=== PATIENT | female | born 1955 | race Caucasian/White ===

== ENCOUNTER 2018-05-01 18:14 | Emergency (ER) | payer BC ==
[~2018-05-01] VITALS: Ht 167.6 cm; Wt 90.3 kg
--- OUTSIDE RECORDS SUMMARY | 2018-05-01 18:17 | XMS REPORT ---
Author Author [facility] Address Unknown Phone Unavailable Care Team Providers Care Razor Grinder Name Role Phone Gina CASTANEDA Unavailable Unavailable Problems This patient has no known problems. Allergies, Adverse Reactions, Alerts This patient has no known allergies or adverse reactions. Medications This patient has no known medications. Results Test Description Test Time Test Comments Text Results Atomic Results Result Comments FUNGUS CULTURE + SMEAR 2018-03-24 16:38:00 CULTURE (BEAKER) (test bclw=7206) No fungus isolated in 28 days FUNGUS SMEAR (BEAKER) (test tfvx=8431) No fungi seen TISSUE [id number] 13:33:00Surgical Pathology Report Case: [id number] Authorizing Provider: Shun Castaneda DPM Collected: 02/18/2018 1409 Ordering Location: [facility] PER[facility] Received: 02/18/2018 1527 SERVICES Pathologist: Rob Milligan MD Specimen: Ulcer, Right Big Toe A. TOE, RIGHT BIG, ULCER, DEBRIDEMENT: - ULCERATION AND NECROSIS INVOLVING SKIN ANDSUBCUTANEOUS SOFT TISSUE - CHRONIC OSTEOMYELITIS OF THE BONE Signing Pathologist Direct Phone Line: [phone] signed by Rob Milligan MD on 02/25/2018 at 1:33 [id number] injury of right foot, stage 3Right big toe ulcer Received in formalin labeled with the patient's name, MRN, and "ulcer" is a 1.5 x 0.4 cm, bond-white skin excised to a depth of 0.9 cm. The surface displays a 0.5 x 0.3 cm ulcer extending to a depth of 0.4 cm. The specimen is inked blue and trisected. Additionally received in the container are 0.5 x 0.5 x 0.2 cm, bond-pink, soft, fragmented pieces of tissue. The specimen is submitted in its entirety as follows: A1, skin with ulcer; A2, detached fragments of tissue. SA/ewPerformed.SURGICALLY OBTAINED CULTURE + GRAM [id number] 11:29:00* Test Item Value Reference Range Comments CULTURE (BEAKER) (test iicl=1824) COAGULASE NEGATIVE STAPHYLOCOCCUS 2+ Coagulase negative Staphylococcus Clindamycin (test code=10) Erythromycin (test code=4) Linezolid (test code=40) Oxacillin (test code=14) Rifampin (test code=43) Tetracycline (test code=2) Trimethoprim + Sulfamethoxazole (test code=47) Vancomycin (test code=13) CULTURE (BEAKER) (test dpjj=9900) From Broth Only Pseudomonas aeruginosa CULTURE (BEAKER) (test zxai=3852) PSEUDOMONAS AERUGINOSA 3+ DiphtheroidNo further workup performed Amikacin (test code=1) Susceptible 0-16 , Resistant <0 or >16 Aztreonam (test code=32) Susceptible 0-8 , Resistant <0 or >8 Cefepime (test code=51) Susceptible 0-8 , Resistant <0 or >8 Ceftazidime (test code=27) Susceptible 0-8 , Resistant <0 or >8 Ciprofloxacin (test code=7) Susceptible 0-1 , Resistant <0 or >1 Gentamicin (test code=18) Susceptible 0-4 , Resistant <0 or >4 Imipenem (test code=19) Susceptible 0-2 , Resistant <0 or >2 Levofloxacin (test code=22) Susceptible 0-2 , Resistant <0 or >2 Meropenem (test code=34) Susceptible 0-2 , Resistant <0 or >2 Piperacillin (test code=24) Susceptible 0-16 , Resistant <0 or >16 Piperacillin + Tazobactam (test code=29) Susceptible 0-16 , Resistant <0 or >16 Tobramycin (test code=25) Susceptible 0-4 , Resistant <0 or >4 GRAM STAIN RESULT (BEAKER) (test yiyj=0749) No white blood cells seen GRAM STAIN RESULT (BEAKER) (test esii=321211) <1+ gram positive rods ANAEROBIC [id number] 05:00:00* Test Item Value Reference Range Comments CULTURE (BEAKER) (test dfus=1973) 2+ Prevotella bivia POCT-GLUCOSE [id number] 11:47:00* Test Item Value Reference Range Comments POC-GLUCOSE METER (INES) (test hfre=6700) 173 mg/dL 70-[address] [facility] [address] [facility] [address]
--- OUTSIDE RECORDS SUMMARY | 2018-05-01 18:17 | XMS REPORT | Clinical Summary ---
Author Author [employer] [facility] [employer] [facility] Address Unknown Phone Unavailable Care Team Providers Care Railroad Shop Inspector Name Role Phone Bessy Ribeiro MD PCP Unavailable Allergies Comments Active Allergy Reactions Severity Noted Date Hair loss Hydrochlorothiazide Other (See High 06/10/2008 Comments) Burning Eyes Thimerosal Other (See High 06/10/2008 Comments) Medications End Date Status Medication Sig Dispensed Refills Start Date Active loratadine (CLARITIN) 10 Take 10 mg by 0 mg tablet mouth daily. Active omega-3 fatty acids-fish Take 2 g by 0 oil 340-1,000 mg Cap per mouth 2 (two) capsule times daily. Active cholecalciferol, vitamin Take by 0 D3, 2,000 unit Cap mouth. Active amLODIPine (NORVASC) 10 Take 10 mg by 0 MG tablet mouth daily. Active atorvastatin (LIPITOR) 10 Take 10 mg by 0 MG tablet mouth daily. Active metFORMIN (GLUCOPHAGE) Take 500 mg 0 500 MG tablet by mouth 2 (two) times daily with breakfast and dinner. Active SITagliptin (JANUVIA) 100 Take 100 mg 0 MG tablet by mouth daily. Active losartan (COZAAR) 50 MG Take 50 mg by 0 tablet mouth daily. Active B comp Take 1 tablet 0 kv2-inair-L-biotin-zinc by mouth 1-60-300-12.5 daily. nn-gp-imp-mg Tab Active Problems Not on file Encounters Care Team Description Date Type Specialty Sveta Wagner CRNA 02/18/2018 Anesthesia Event Shun Paul DPM OSTECTOMY,FOOT/ TOE 02/18/2018 Surgery Shun Paul DPM Exostosis of toe (Primary Dx); Chronic osteomyelitis of toe, right (HCC); Acquired hammertoe of great toes of both feet; Pressure ulcer of toe of right foot, stage 4 (HCC) 02/18/2018 Hospital Encounter Resource, [facility]readmit Phone 02/12/2018 Hospital Pre-Admission Testing Encounter after 04/30/2017 Social History Date Tobacco Use Types Packs/Day Years Used Never Smoker Smokeless Tobacco: Never Used Alcohol Use Drinks/Week oz/Week Comments No Alcohol Habits Answer Date Recorded How often do you have a drink containing alcohol? Never 02/12/2018 How many drinks containing alcohol do you have on Not asked a typical day when you are drinking? How often do you have six or more drinks on one Not asked occasion? Sex Assigned at Date Recorded Not on file Industry Job Start Date Occupation Not on file Not on file Not on file Travel End Travel History Travel Start No recent travel history available. Last Filed Vital Signs Time Taken Vital Sign Reading 02/18/2018 4:10 PM [employer] Blood Pressure 100/53 02/18/2018 4:10 PM [employer] Pulse 90 02/18/2018 4:10 PM [employer] Temperature 36.4 C (97.5 F) 02/18/2018 4:10 PM [employer] Respiratory Rate 18 02/18/2018 4:10 PM [employer] Oxygen Saturation 100% - Inhaled Oxygen - Concentration 02/18/2018 11:20 AM [employer] Weight 88.2 kg (194 lb 6.4 oz) 02/18/2018 11:20 AM [employer] Height 167.6 cm (5' 6") 02/18/2018 11:20 AM [employer] Body Mass Index 31.38 Plan of Treatment Not on file Procedures Comments Procedure Name Priority Date/Time Associated Diagnosis TISSUE EXAM AP Routine 02/18/2018 2:09 PM [employer] FUNGUS CULTURE + SMEAR Routine 02/18/2018 2:04 PM [employer] ANAEROBIC CULTURE Routine 02/18/2018 2:04 PM [employer] SURGICALLY OBTAINED Routine 02/18/2018 CULTURE + GRAM STAIN 2:04 PM [employer] DEBRIDEMENT/I&D,WOUND 02/18/2018 Pressure injury of right EXTREMITY LOWER 12:00 PM [employer] foot, stage 3 (HCC) Case Notes 2 HRSOK'D TF GIVEN BY [facility] Special Jonny (PULSE LAVAGE)Joce zavala OSTECTOMY,FOOT/ TOE 02/18/2018 Pressure injury of right 12:00 PM [employer] foot, stage 3 (HCC) Case Notes 2 HRSOK'D TF GIVEN BY [facility]ORY Special Needs (PULSE LAVAGE)Joce zavala POCT-GLUCOSE METER Routine 02/18/2018 11:44 AM [employer] after 04/30/2017 Results * Tissue Exam (02/18/2018 2:09 PM [employer]) Case Report Surgical Pathology [facility] Report [facility] Case: [id number] Authorizing Provider:Shun Paul DPollected: 02/18/2018 1409 Ordering Location: [facility] PERIOPERATIVE Received: 02/18/2018 1527 SERVICES Pathologist: Rob Milligan MD Specimen:Ulcer, Right Big Toe DIAGNOSIS A. TOE, RIGHT BIG, ULCER, [facility] DEBRIDEMENT: [facility] - ULCERATION AND NECROSIS INVOLVING SKIN ANDSUBCUTANEOUS SOFT TISSUE - CHRONIC OSTEOMYELITIS OF THE BONE Signing Pathologist Direct Phone Line: [phone] CPT Code(s) 89[address] [facility] CLINICAL HISTORY Pressure injury of right foot, [facility] stage 3 [facility] SPECIMEN SOURCE Right big toe ulcer [facility] GROSS DESCRIPTION Received in formalin labeled [facility] with the patient's name, MRN, [facility] and "ulcer" is a 1.5 x 0.4 [...] with ulcer; A2, detached fragments of tissue. SA/ew MICROSCOPIC DESCRIPTION Performed. [facility] Specimen Tissue - Ulcer Performing Organization Address City/State/Zipcode Phone Number [facility] [address] [place] [address] MEDICAL CENTER * Anaerobic culture (02/18/2018 2:04 PM [employer]) Result PREVOTELLA BIVIA (A) [facility] Specimen Wound - Toe, Right Performing Organization Address [facility] Phone Number [facility] [address] [place] [address] [facility] * Surgically obtained culture + gram stain (02/18/2018 2:04 PM [employer]) Result STAPHYLOCOCCUS, COAGULASE [facility] NEGATIVE (A) [facility] Result PSEUDOMONAS AERUGINOSA (A) [facility] Result 3+ Diphtheroid (A)Comment: No [facility] further workup performed [facility] Gram Stain Result No white blood cells seen [facility] Gram Stain Result <1+ gram positive rods [facility] Specimen Wound - Toe, Right Antibiotic Method Susceptibility Organism Clindamycin >=4: Resistant Coagulase negative Staphylococcus Erythromycin >=8: Resistant Coagulase negative Staphylococcus Linezolid 2: Susceptible Coagulase negative Staphylococcus Oxacillin >=4: Resistant Coagulase negative Staphylococcus Rifampin <=0.5: Susceptible Coagulase negative Staphylococcus Tetracycline <=1: Susceptible Coagulase negative Staphylococcus Trimethoprim + Sulfamethoxazole 80: Resistant Coagulase negative Staphylococcus Vancomycin 1: Susceptible Coagulase negative Staphylococcus Amikacin <=8: Susceptible Pseudomonas aeruginosa Aztreonam 4: Susceptible Pseudomonas aeruginosa Cefepime <=4: Susceptible Pseudomonas aeruginosa Ceftazidime <=1: Susceptible Pseudomonas aeruginosa Ciprofloxacin <=0.5: Susceptible Pseudomonas aeruginosa Gentamicin <=2: Susceptible Pseudomonas aeruginosa Imipenem <=0.5: Susceptible Pseudomonas aeruginosa Levofloxacin <=1: Susceptible Pseudomonas aeruginosa Meropenem <=0.5: Susceptible Pseudomonas aeruginosa Piperacillin <=16: Susceptible Pseudomonas aeruginosa Piperacillin + Tazobactam <=8: Susceptible Pseudomonas aeruginosa Tobramycin <=2: Susceptible Pseudomonas aeruginosa Performing Organization Address [facility] Phone Number [facility] [address] [place] [address] [facility] * Fungus culture + smear (02/18/2018 2:04 PM [employer]) Result No fungus isolated in 28 days [facility] Fungus Smear No fungi seen [facility] Specimen Wound - Toe, Right Performing Organization Address City/[facility] Phone Number [facility] [address] [place] [address] [facility] * POC-Glucose meter (02/18/2018 11:44 AM [employer]) POC-Glucose Meter 173 (H)Comment: TESTED AT 70 - 110 mg/dL [facility] [address] [facility] [id number] Specimen Blood Performing Organization Address City/[facility] Phone Number [facility] [address] [place] [address] [facility] after 04/30/2017 Insurance Payer Benefit Subscriber ID Type Phone Address Plan / Group BLUE CROSS/BLUE SHIELD BCBS HMO xxxxxxxxxxxx HMO/POS [phone] [address] [place] [address] TIA
--- NOTE | 2018-05-01 19:42 | NUR ---
REPORT TO SHEBA MALAGON
--- NOTE | 2018-05-01 19:44 | Diagnostic Imaging Report ---
FOREARM 2 VIEW LT -HOPD - 2 views HISTORY: Pain. Left arm fracture COMPARISON: None available. FINDINGS: Bones: No acute displaced fracture. Osseous alignment is within normal limits. Joints: The joint spaces are well-maintained. Soft tissues: The soft tissues appear unremarkable. IMPRESSION: No acute radiographic abnormality. Signed by: Dr. Lane Pittman M.D. on 05/01/2018 7:41 PM
--- NOTE | 2018-05-01 19:45 | Diagnostic Imaging Report ---
WRIST 2VW LT -HOPD - 3 views HISTORY: Pain. Left arm fracture. COMPARISON: None available. FINDINGS: Bones: No acute displaced fracture. Osseous alignment is within normal limits. Joints: The joint spaces are well-maintained. Soft tissues: The soft tissues appear unremarkable. IMPRESSION: No acute radiographic abnormality. Signed by: Dr. Lane Pittman M.D. on 05/01/2018 7:42 PM
--- NOTE | 2018-05-01 19:46 | Diagnostic Imaging Report ---
ELBOW 2 VIEW LT - HOPD - 3 views HISTORY: Pain. Left arm fracture COMPARISON: None available. FINDINGS: Bones: No acute displaced fracture. Osseous alignment is within normal limits. Joints: The joint spaces are well-maintained. Soft tissues: The soft tissues appear unremarkable. IMPRESSION: No acute radiographic abnormality. Signed by: Dr. Lane Pittman M.D. on 05/01/2018 7:42 PM
== END 2018-05-01 20:50 | disposition home or self-care (01) ==
LOC: FSED 18:14
DX: S60.222A Contusion of left hand, initial encounter (principal); S50.12XA Contusion of left forearm, initial encounter; S50.02XA Contusion of left elbow, initial encounter; W18.30XA Fall on same level, unspecified, initial encounter; Y92.008 Other place in unspecified non-institutional (private) residence as the place of occurrence of the external cause
CPT/HCPCS: 99283